=== PATIENT | male | born 1945 | race Caucasian/White ===

== ENCOUNTER 2019-07-20 15:07 | Inpatient (IN) | payer MEDICARE, OTHER ==
[~2019-07-20] VITALS: Ht 162.6 cm; Wt 100.8 kg
[2019-07-20] MEDS ORDERED: normal saline 1000ML IV soln IVB ONE (15:25)
[2019-07-20] MEDS ORDERED: ondansetron/PF 4mg/2ml inj IV ONE (15:25)
[2019-07-20 15:43] LABS: BASOPHILS % (AUTO) 0.4 % (0-1); EOSINOPHILS # (AUTO) 0.3 X10'3 (0-0.9); EOSINOPHILS % (AUTO) 2.7 % (0-6); HEMATOCRIT 36.4 % (42.0-52.0); HEMOGLOBIN 12.3 g/dl (14.0-17.9); LYMPHOCYTES # (AUTO) 1.5 X10'3 (1.1-4.8); LYMPHOCYTES % (AUTO) 15.8 % (21-51); MEAN CORPUSCULAR HEMOGLOBIN 33.2 PG (27.0-31.0); MEAN CORPUSCULAR HGB CONC 33.9 g/dL (33.0-36.5); MEAN CORPUSCULAR VOLUME 97.8 FL (78-98); MEAN PLATELET VOLUME 7.6 FL (7.4-10.4); MONOCYTES # (AUTO) 1.5 X10'3 (0-0.9); MONOCYTES % (AUTO) 16.2 % (2-12); NEUTROPHILS # (AUTO) 6.1 X10'3 (1.8-7.7); NEUTROPHILS % (AUTO) 64.9 % (42-75); PLATELET COUNT 261 X10'3 (140-440); RED BLOOD COUNT 3.72 X10'6 (4.70-6.10); RED CELL DISTRIBUTION WIDTH 14.3 % (11.5-14.5); WHITE BLOOD COUNT 9.5 X10'3 (4.5-11.0)
[2019-07-20 15:53] LABS: ALANINE AMINOTRANSFERASE 33 U/L (12-78); ALBUMIN/GLOBULIN RATIO 0.7 (1.1-1.5); ALKALINE PHOSPHATASE 103 IU/L (46-116); ANION GAP 14 (8-16); ASPARTATE AMINO TRANSFERASE 22 U/L (10-37); BILIRUBIN,TOTAL 0.4 MG/DL (0.1-1.0); BLOOD UREA NITROGEN 83 MG/DL (7-18); BUN/CREATININE RATIO 15.1 (5.4-32.0); CALCIUM 8.2 MG/DL (8.5-10.1); CHLORIDE 108 MMOL/L (99-107); GLUCOSE 185 MG/DL (70-104); POTASSIUM 4.4 MMOL/L (3.5-5.1); SODIUM 139 MMOL/L (135-145); TOTAL CARBON DIOXIDE 17.1 MMOL/L (24-32); TOTAL PROTEIN 7.1 G/DL (6.4-8.2); eGFR 10 ML/MIN
[2019-07-20] MEDS ORDERED: normal saline 1000ML IV soln IV ONE (16:25)
[2019-07-20] MEDS ORDERED: FISH12002 PO (17:40)
[2019-07-20] MEDS ORDERED: LIRA0.6P2 SUBCUT (17:40)
[2019-07-20] MEDS ORDERED: ATOR20TA PO (17:40)
[2019-07-20] MEDS ORDERED: HYDR-4069 PO (17:40)
[2019-07-20] MEDS ORDERED: LISI40TA4 PO (17:40)
[2019-07-20] MEDS ORDERED: HUM7525 SQ (17:40)
[2019-07-20] MEDS ORDERED: AMLO2.5T2 PO (17:40)
[2019-07-20] MEDS ORDERED: glucagon, human recombinant 1mg kit SUBCUT PRN (18:05)
[2019-07-20] MEDS ORDERED: magnesium hydroxide 30ml (MOM) UD suspension PO PRN (18:05)
[2019-07-20] MEDS ORDERED: magnesium Cl slow-release 64mg tablet PO PRN (18:05)
[2019-07-20] MEDS ORDERED: MESSAGE TO PHARMACY PO ONE (18:05)
[2019-07-20] MEDS: K and/or MAG REPLACEMENT MC SCH (18:05)
[2019-07-20] MEDS ORDERED: potassium CL 10mEq/100ml bag 100 ML IV PRN ×2 (18:05)
[2019-07-20] MEDS ORDERED: acetaminophen 325mg tablet PO PRN (18:05)
[2019-07-20] MEDS ORDERED: mag hydrox/Alum hydrox/simeth 30ml oral suspension PO PRN (18:05)
[2019-07-20] MEDS ORDERED: dextrose 50%-water 50ml dispensing syringe IV PRN ×2 (18:05)
[2019-07-20] MEDS ORDERED: magnesium 4gm in 100ml NS 100 ML IV PRN (18:05)
[2019-07-20] MEDS ORDERED: potassium Cl 20 mEq SR tablet PO PRN ×2 (18:05)
[2019-07-20] MEDS ORDERED: dextrose ORAL solution 15 GM/59 ML bottle PO PRN ×2 (18:05)
[2019-07-20] MEDS ORDERED: normal saline 1000ml 1,000 ML IV SCH (18:05)
[2019-07-20] MEDS ORDERED: magnesium 2GM in 50ml NS 50 ML IV PRN (18:05)
[2019-07-20] MEDS ORDERED: ondansetron/PF 4mg/2ml inj IV PRN (18:05)
[2019-07-20] MEDS ORDERED: hydrALAZINE 20mg/ml inj. IV PRN (18:25)
[2019-07-20 19:00] VITALS: BP 107/56
--- NOTE | 2019-07-20 19:17 | NUR ---
SPOKE WITH MD PRADHAN AND MD MUÑOZ CONCERNING PLACING MOREAU CATHETER IN PT WITH PENILE IMPLANT. NO CONCERNS NOTED BUT TO USE SMALLER THAN 16fr CATHETER.
[2019-07-20 19:50] LABS: CLARITY,URINE CLEAR (Clear); COLOR,URINE YELLOW (Yellow); GLUCOSE, URINE NEGATIVE (Neg); KETONES,URINE NEGATIVE (Neg); LEUKOCYTE ESTERASE ,URINE NEGATIVE (Neg); NITRITES, URINE NEGATIVE (Neg); OCCULT BLOOD,URINE NEGATIVE (Neg); PROTEIN,URINE NEGATIVE (Neg); UROBILINOGEN,URINE 0.2 E.U/dL (0.2-1.0)
[2019-07-20 19:51] LABS: UA COLLECTION TYPE FOLEY CATH
--- NOTE | 2019-07-20 20:00 | NUR ---
Received pt report from Sharonda LIRA in ER, had the opportunity to ask questions.
[2019-07-20 20:09] LABS: SODIUM,URINE RANDOM < 15 MEQ/L; TOTAL PROTEIN,URINE RANDOM 32.8 MG/DL
--- NOTE | 2019-07-20 20:15 | NUR ---
pt arrived to unit with all belongings via gurney, transferred to bed by standing and walking, VS stable, tele monitor attached, oriented pt to room, call light in reach, bed low and locked, beck assessed and WDL,
[2019-07-20 20:30] VITALS: BP 107/56
[2019-07-20 20:35] LABS: OSMOLALITY UA 338 MOSM/K (50-1400)
[2019-07-20 20:40] LABS: UA EOSINOPHILS NO EOS /HPF
[2019-07-20] MEDS: heparin, porcine 5000 units/ml vial SQ SCH (20:57)
[2019-07-20] MEDS: sodium bicarbonate (8.4%) inj. 50 MEQ in sodium chloride 0.45% 1,000 ML IV SCH (20:58)
[2019-07-20] MEDS: insulin glargine (Lantus) pen - multi-dose SQ SCH (21:00)
[2019-07-20] MEDS ORDERED: temazepam 15mg capsule PO PRN (21:00)
[2019-07-20 23:00] VITALS: BP 102/55
--- NOTE | 2019-07-21 00:12 | NUR ---
unable to complete med rec at this time. pt does not know what his doses or regular medications are. he states that [facility] have have [facility].
[2019-07-21 03:00] VITALS: BP 120/55
[2019-07-21] MEDS: sodium bicarbonate (8.4%) inj. 50 MEQ in sodium chloride 0.45% 1,000 ML IV SCH ×3 (03:20→20:08)
--- NOTE | 2019-07-21 05:29 | NUR ---
Unable to complete DARTing because pt wanted to sleep and refused to answer many questions at night. pt states "I want to just sleep, I will answer questions in the morning".
[2019-07-21 06:00] VITALS: BP 114/65
[2019-07-21 06:00] LABS: ALANINE AMINOTRANSFERASE 28 U/L (12-78); ALBUMIN 2.6 G/DL (3.4-5.0); ALBUMIN/GLOBULIN RATIO 0.8 (1.1-1.5); ALKALINE PHOSPHATASE 78 IU/L (46-116); ANION GAP 13 (8-16); ASPARTATE AMINO TRANSFERASE 13 U/L (10-37); BILIRUBIN,TOTAL 0.2 MG/DL (0.1-1.0); BLOOD UREA NITROGEN 84 MG/DL (7-18); BUN/CREATININE RATIO 16.6 (5.4-32.0); CALCIUM 7.2 MG/DL (8.5-10.1); CHLORIDE 111 MMOL/L (99-107); CREATININE 5.07 MG/DL (0.60-1.10); GLUCOSE 145 MG/DL (70-104); MAGNESIUM 1.7 MG/DL (1.5-2.4); PHOSPHORUS 5.1 MG/DL (2.3-4.5); SODIUM 141 MMOL/L (135-145); TOTAL CARBON DIOXIDE 17.4 MMOL/L (24-32); eGFR 11 ML/MIN
[2019-07-21 06:02] LABS: BASOPHILS % (AUTO) 0.1 % (0-1); EOSINOPHILS # (AUTO) 0.3 X10'3 (0-0.9); EOSINOPHILS % (AUTO) 3.7 % (0-6); HEMATOCRIT 31.9 % (42.0-52.0); LYMPHOCYTES # (AUTO) 1.5 X10'3 (1.1-4.8); LYMPHOCYTES % (AUTO) 20.1 % (21-51); MEAN CORPUSCULAR HEMOGLOBIN 33.8 PG (27.0-31.0); MEAN CORPUSCULAR HGB CONC 34.4 g/dL (33.0-36.5); MEAN CORPUSCULAR VOLUME 98.3 FL (78-98); MEAN PLATELET VOLUME 7.6 FL (7.4-10.4); MONOCYTES # (AUTO) 1.4 X10'3 (0-0.9); MONOCYTES % (AUTO) 18.1 % (2-12); NEUTROPHILS # (AUTO) 4.4 X10'3 (1.8-7.7); PLATELET COUNT 206 X10'3 (140-440); RED BLOOD COUNT 3.24 X10'6 (4.70-6.10); RED CELL DISTRIBUTION WIDTH 14.2 % (11.5-14.5); WHITE BLOOD COUNT 7.6 X10'3 (4.5-11.0)
--- NOTE | 2019-07-21 06:43 | NUR ---
Problems reprioritized. Patient report given, questions answered & plan of care reviewed with Kathy Miguel RN.
--- NOTE | 2019-07-21 06:46 | NUR ---
Patient in room PCU 3009. I have received report from PANKAJ Kamara and had the opportunity to ask questions and assume patient care. Pt awake and alert. Will continue to monitor.
[2019-07-21] MEDS: heparin, porcine 5000 units/ml vial SQ SCH ×2 (07:56→21:29)
[2019-07-21] MEDS: K and/or MAG REPLACEMENT MC SCH (08:00)
[2019-07-21 11:00] VITALS: BP 133/65
--- NOTE | 2019-07-21 11:47 | NUR ---
Ok to leave IV in Right AC per Dr Crabtree.
--- NOTE | 2019-07-21 13:09 | NUR ---
DM Consult: A1C 7.7. Pt admit w/ diarrhea over one week following meal. On c. diff isolation at this time w/ liquid stools. DX acute renal failure, dehydration, and diarrhea. Hx CKD III, 8in colon resection for "ulcers" per MD note. CT shows diverticulosis without diverticulitis per MD note. Pt will need DM ed once stable prior to d/c. Will continue to monitor. Addendum: 07/21/19 at [address] Amended: Links added.
[2019-07-21 15:00] VITALS: BP 117/53
--- NOTE | 2019-07-21 16:30 | NUR ---
Patient report given, questions answered & plan of care reviewed with PANKAJ Chavez. Addendum: 07/22/19 at 0025 by Ann RECINOS REPORT RECEIVED FROM PANKAJ CHAVEZ. PLAN OF CARE REVIEWED.
[2019-07-21 18:00] VITALS: BP 151/78
--- NOTE | 2019-07-21 18:30 | NUR ---
Patient in room PCU 3009. I have received report from [employer] and had the opportunity to ask questions and assume patient care. ASSUMED CARE OF RN STUDENT ABHISHEK Antonio
--- NOTE | 2019-07-21 18:47 | NUR ---
Problems reprioritized. Patient report given, questions answered & plan of care reviewed with PANKAJ Colon.
[2019-07-21] MEDS: insulin Lispro (HumaLOG) vial - multi-dose SQ SCH (19:40)
[2019-07-21] MEDS: insulin glargine (Lantus) pen - multi-dose SQ SCH (21:27)
[2019-07-21 22:00] VITALS: BP 144/73
[2019-07-21] MEDS: acetaminophen 325mg tablet PO PRN (22:39)
[2019-07-22] VITALS (7 sets, daily range): BP systolic 103–147; BP diastolic 43–76
--- NOTE | 2019-07-22 01:32 | NUR ---
Student documentation: I have reviewed and agree with all interventions, assessments performed and documented by ABHISHEK Norris Medication Administration: For this medication-pass time frame, all medication were reviewed, dispensed, administered and documented per hospital policy by ABHISHEK Antonio
[2019-07-22] MEDS: sodium bicarbonate (8.4%) inj. 50 MEQ in sodium chloride 0.45% 1,000 ML IV SCH ×3 (01:34→19:45)
[2019-07-22] MEDS: acetaminophen 325mg tablet PO PRN (06:01)
[2019-07-22 06:22] LABS: BASOPHILS % (AUTO) 0.1 % (0-1); EOSINOPHILS # (AUTO) 0.1 X10'3 (0-0.9); EOSINOPHILS % (AUTO) 0.5 % (0-6); HEMATOCRIT 36.2 % (42.0-52.0); HEMOGLOBIN 12.4 g/dl (14.0-17.9); LYMPHOCYTES # (AUTO) 1.4 X10'3 (1.1-4.8); LYMPHOCYTES % (AUTO) 9.4 % (21-51); MEAN CORPUSCULAR HEMOGLOBIN 33.4 PG (27.0-31.0); MEAN CORPUSCULAR HGB CONC 34.3 g/dL (33.0-36.5); MEAN CORPUSCULAR VOLUME 97.4 FL (78-98); MEAN PLATELET VOLUME 7.3 FL (7.4-10.4); MONOCYTES # (AUTO) 2.4 X10'3 (0-0.9); NEUTROPHILS # (AUTO) 11.1 X10'3 (1.8-7.7); PLATELET COUNT 214 X10'3 (140-440); RED BLOOD COUNT 3.72 X10'6 (4.70-6.10); RED CELL DISTRIBUTION WIDTH 14.3 % (11.5-14.5)
--- NOTE | 2019-07-22 06:26 | NUR ---
Problems reprioritized. Patient report given, questions answered & plan of care reviewed with DRE.
[2019-07-22 06:41] LABS: ALANINE AMINOTRANSFERASE 24 U/L (12-78); ALBUMIN 2.5 G/DL (3.4-5.0); ALBUMIN/GLOBULIN RATIO 0.6 (1.1-1.5); ALKALINE PHOSPHATASE 65 IU/L (46-116); ANION GAP 15 (8-16); ASPARTATE AMINO TRANSFERASE 16 U/L (10-37); BILIRUBIN,TOTAL 0.4 MG/DL (0.1-1.0); BLOOD UREA NITROGEN 70 MG/DL (7-18); BUN/CREATININE RATIO 16.8 (5.4-32.0); CALCIUM 7.9 MG/DL (8.5-10.1); CHLORIDE 111 MMOL/L (99-107); CREATININE 4.17 MG/DL (0.60-1.10); GLUCOSE 124 MG/DL (70-104); MAGNESIUM 1.6 MG/DL (1.5-2.4); PHOSPHORUS 3.9 MG/DL (2.3-4.5); POTASSIUM 3.7 MMOL/L (3.5-5.1); SODIUM 142 MMOL/L (135-145); TOTAL CARBON DIOXIDE 15.8 MMOL/L (24-32); TOTAL PROTEIN 6.8 G/DL (6.4-8.2); eGFR 14 ML/MIN
[2019-07-22 07:38] LABS: LARGE PLATELETS FEW; PLATELET ESTIMATE NORMAL; TOTAL CELLS COUNTED 100
[2019-07-22] MEDS: K and/or MAG REPLACEMENT MC SCH (08:00)
[2019-07-22] MEDS: heparin, porcine 5000 units/ml vial SQ SCH ×2 (08:50→19:45)
[2019-07-22] MEDS: insulin Lispro (HumaLOG) vial - multi-dose SQ SCH ×2 (09:27→19:44)
[2019-07-22 14:04] LABS: C DIFF ANTIGEN NEGATIVE (NEGATIVE); C DIFF SPECIMEN=DIARRHEA? ACCEPTABLE; C DIFFICILE TOXINS A&B NEGATIVE (Neg)
--- NOTE | 2019-07-22 15:17 | NUR ---
Initial: Pt seen by RD for written/verbal DM ed w/ RD contact information provided. Pt declined verbal review. DX c.diff s/p bad fish meal per pt report. Pt PO 0-25% first day w/ 100% carbs so far today documented. No nutrition concerns at this time. Will continue to monitor. Rec: 1. continue carb controlled diet 2. wt per rx Addendum: 07/22/19 at [address] Amended: Links added.
--- NOTE | 2019-07-22 18:31 | NUR ---
Problems reprioritized. Patient report given, questions answered & plan of care reviewed with PANKAJ Aguilar.
--- NOTE | 2019-07-22 18:36 | NUR ---
Problems reprioritized. Patient report given, questions answered & plan of care reviewed with PANKAJ Chavez. Patient awake for bedside report and stable at this time. Will continue to monitor closely.
[2019-07-22] MEDS: insulin glargine (Lantus) pen - multi-dose SQ SCH (21:49)
[2019-07-23] VITALS (7 sets, daily range): BP systolic 114–147; BP diastolic 57–86
[2019-07-23] MEDS: sodium bicarbonate (8.4%) inj. 50 MEQ in sodium chloride 0.45% 1,000 ML IV SCH ×3 (04:55→21:17)
--- NOTE | 2019-07-23 06:16 | NUR ---
Problems reprioritized. Patient report given, questions answered & plan of care reviewed with PANKAJ Chavez.
[2019-07-23 06:30] LABS: BASOPHILS % (AUTO) 0.2 % (0-1); EOSINOPHILS # (AUTO) 0.1 X10'3 (0-0.9); EOSINOPHILS % (AUTO) 0.8 % (0-6); HEMOGLOBIN 12.6 g/dl (14.0-17.9); LYMPHOCYTES # (AUTO) 1.6 X10'3 (1.1-4.8); MEAN CORPUSCULAR HEMOGLOBIN 33.2 PG (27.0-31.0); MEAN CORPUSCULAR VOLUME 97.6 FL (78-98); MEAN PLATELET VOLUME 7.6 FL (7.4-10.4); MONOCYTES # (AUTO) 2.2 X10'3 (0-0.9); MONOCYTES % (AUTO) 16.4 % (2-12); NEUTROPHILS # (AUTO) 9.6 X10'3 (1.8-7.7); NEUTROPHILS % (AUTO) 70.6 % (42-75); PLATELET COUNT 239 X10'3 (140-440); RED BLOOD COUNT 3.79 X10'6 (4.70-6.10); RED CELL DISTRIBUTION WIDTH 14.5 % (11.5-14.5); WHITE BLOOD COUNT 13.6 X10'3 (4.5-11.0)
--- NOTE | 2019-07-23 06:34 | NUR ---
Patient in room PCU 3009. I have received report from PANKAJ Aguilar and had the opportunity to ask questions and assume patient care. Pt sleeping. Will continue to monitor.
[2019-07-23 06:59] LABS: ALANINE AMINOTRANSFERASE 30 U/L (12-78); ALBUMIN 2.4 G/DL (3.4-5.0); ALBUMIN/GLOBULIN RATIO 0.5 (1.1-1.5); ALKALINE PHOSPHATASE 69 IU/L (46-116); ANION GAP 14 (8-16); ASPARTATE AMINO TRANSFERASE 20 U/L (10-37); BILIRUBIN,TOTAL 0.5 MG/DL (0.1-1.0); BLOOD UREA NITROGEN 55 MG/DL (7-18); CALCIUM 8.3 MG/DL (8.5-10.1); CHLORIDE 107 MMOL/L (99-107); CREATININE 3.43 MG/DL (0.60-1.10); GLUCOSE 149 MG/DL (70-104); MAGNESIUM 1.5 MG/DL (1.5-2.4); PHOSPHORUS 3.1 MG/DL (2.3-4.5); POTASSIUM 3.5 MMOL/L (3.5-5.1); SODIUM 140 MMOL/L (135-145); TOTAL CARBON DIOXIDE 19.4 MMOL/L (24-32); eGFR 18 ML/MIN
[2019-07-23] MEDS: heparin, porcine 5000 units/ml vial SQ SCH (07:26)
[2019-07-23] MEDS: K and/or MAG REPLACEMENT MC SCH (07:33)
--- NOTE | 2019-07-23 08:06 | NUR ---
Sent to Dr Slaughter PAGER ID: [phone] MESSAGE: RE: Kamron Andres [phone]. Pt c/o left sided CP. STAT EKG ordered per protocol. Would you like to come to the floor to read it or have me take it to ED to be read by MD? -Kathy [phone]
[2019-07-23] MEDS ORDERED: nitroGLYCERIN 0.4mg SUBLingual tab SL PRN (08:15)
[2019-07-23] MEDS ORDERED: nitroGLYCERIN 0.4mg/hour patch TD ONE (08:15)
[2019-07-23] MEDS ORDERED: heparin 10,000 units/1 ML INJ IV ONE (08:20)
[2019-07-23] MEDS ORDERED: heparin 10,000 units/1 ML INJ IV PRN (08:20)
[2019-07-23] MEDS: insulin Lispro (HumaLOG) vial - multi-dose SQ SCH ×3 (08:27→19:30)
[2019-07-23] MEDS ORDERED: aspirin 81mg tab.chew PO ONE (08:35)
[2019-07-23] MEDS: heparin 25,000 UNIT/250ml bag 250 ML IV SCH (08:53)
[2019-07-23 09:19] LABS: PARTIAL THROMBOPLASTIN TIME 38 SECONDS (22-32)
--- NOTE | 2019-07-23 18:26 | NUR ---
Patient in room PCU 3009. I have received report from PANKAJ Chavez and had the opportunity to ask questions and assume patient care. Patient awake for bedside report. Patient on room air and stable at this time consuming evening meal. Heparin gtt infusing at 1000 units/hr per provider order. Will continue to monitor closely.
--- NOTE | 2019-07-23 18:39 | NUR ---
Problems reprioritized. Patient report given, questions answered & plan of care reviewed with PANKAJ Aguilar.
[2019-07-23] MEDS: tamsulosin 0.4mg capsule PO SCH (21:15)
[2019-07-23] MEDS: insulin glargine (Lantus) pen - multi-dose SQ SCH (22:01)
--- NOTE | 2019-07-23 23:05 | NUR ---
Patient 12 hr troponin elevated at 0.10. Dr. Hickey notified and no new orders at this time. 12 hr EKG reviewed and in sinus rhythm. Patient stable and no complaints of chest pain at this time. Will continue to monitor closely.
[2019-07-24 03:00] VITALS: BP 142/75
[2019-07-24 03:07] LABS: ALANINE AMINOTRANSFERASE 46 U/L (12-78); ALBUMIN 2.3 G/DL (3.4-5.0); ALBUMIN/GLOBULIN RATIO 0.5 (1.1-1.5); ALKALINE PHOSPHATASE 73 IU/L (46-116); ANION GAP 12 (8-16); ASPARTATE AMINO TRANSFERASE 33 U/L (10-37); BILIRUBIN,TOTAL 0.4 MG/DL (0.1-1.0); BLOOD UREA NITROGEN 48 MG/DL (7-18); BUN/CREATININE RATIO 15.6 (5.4-32.0); CALCIUM 7.6 MG/DL (8.5-10.1); CHLORIDE 107 MMOL/L (99-107); CREATININE 3.08 MG/DL (0.60-1.10); GLUCOSE 175 MG/DL (70-104); MAGNESIUM 1.3 MG/DL (1.5-2.4); PHOSPHORUS 2.5 MG/DL (2.3-4.5); POTASSIUM 3.5 MMOL/L (3.5-5.1); SODIUM 141 MMOL/L (135-145); TOTAL CARBON DIOXIDE 22.4 MMOL/L (24-32); TOTAL PROTEIN 6.6 G/DL (6.4-8.2); eGFR 20 ML/MIN
--- NOTE | 2019-07-24 03:30 | NUR ---
Patient Cardiac PTT resulted at 32. 4,000 unit bolus administered and set increase to 1200 units/hr from 1,000 units/hr per protocol. Next PTT at 0930. Will continue to monitor closely.
[2019-07-24 06:00] VITALS: BP_SYST 127; BP_SYST 144; BP_DIAS 64; BP_DIAS 68
--- NOTE | 2019-07-24 06:24 | NUR ---
Problems reprioritized. Patient report given, questions answered & plan of care reviewed with PANKAJ Robison and PANKAJ Quezada.
--- NOTE | 2019-07-24 06:30 | NUR ---
received report on this patient
[2019-07-24] MEDS: finasteride 5mg tablet PO SCH (07:20)
[2019-07-24] MEDS: K and/or MAG REPLACEMENT MC SCH (07:22)
[2019-07-24] MEDS: heparin 25,000 UNIT/250ml bag 250 ML IV SCH (07:25)
[2019-07-24] MEDS: sodium bicarbonate (8.4%) inj. 50 MEQ in sodium chloride 0.45% 1,000 ML IV SCH ×3 (07:27→20:56)
--- NOTE | 2019-07-24 09:00 | NUR ---
stopped heparin drip per order
[2019-07-24 10:03] LABS: BASOPHILS % (AUTO) 0.2 % (0-1); EOSINOPHILS # (AUTO) 0.2 X10'3 (0-0.9); EOSINOPHILS % (AUTO) 1.6 % (0-6); HEMATOCRIT 31.1 % (42.0-52.0); HEMOGLOBIN 10.9 g/dl (14.0-17.9); LYMPHOCYTES # (AUTO) 1.3 X10'3 (1.1-4.8); LYMPHOCYTES % (AUTO) 12.7 % (21-51); MEAN CORPUSCULAR HEMOGLOBIN 34.1 PG (27.0-31.0); MEAN CORPUSCULAR HGB CONC 35.1 g/dL (33.0-36.5); MEAN PLATELET VOLUME 7.3 FL (7.4-10.4); MONOCYTES # (AUTO) 1.4 X10'3 (0-0.9); MONOCYTES % (AUTO) 14.5 % (2-12); PLATELET COUNT 213 X10'3 (140-440); RED BLOOD COUNT 3.21 X10'6 (4.70-6.10); RED CELL DISTRIBUTION WIDTH 14.3 % (11.5-14.5); WHITE BLOOD COUNT 9.9 X10'3 (4.5-11.0)
[2019-07-24 11:00] VITALS: BP 141/72
[2019-07-24] MEDS: acetaminophen 325mg tablet PO PRN ×2 (14:50→21:24)
[2019-07-24] MEDS: insulin Lispro (HumaLOG) vial - multi-dose SQ SCH ×3 (14:54→21:59)
[2019-07-24 15:00] VITALS: BP 140/83
[2019-07-24] MEDS: ipratropium/albuterol 3ml nebule NEB SCH ×3 (16:09→23:21)
[2019-07-24 18:00] VITALS: BP 140/72
--- NOTE | 2019-07-24 19:04 | NUR ---
Patient in room PCU 3009. I have received report from Michael LIRA and had the opportunity to ask questions and assume patient care.
[2019-07-24] MEDS: tamsulosin 0.4mg capsule PO SCH (20:55)
[2019-07-24] MEDS: insulin glargine (Lantus) pen - multi-dose SQ SCH (21:58)
[2019-07-24 23:00] VITALS: BP 132/55
[2019-07-25] VITALS (7 sets, daily range): BP systolic 128–150; BP diastolic 54–83
[2019-07-25] MEDS: ipratropium/albuterol 3ml nebule NEB SCH ×6 (03:16→23:33)
[2019-07-25] MEDS: sodium bicarbonate (8.4%) inj. 50 MEQ in sodium chloride 0.45% 1,000 ML IV SCH (05:42)
[2019-07-25] MEDS: acetaminophen 325mg tablet PO PRN (06:02)
--- NOTE | 2019-07-25 06:14 | NUR ---
Problems reprioritized. Patient report given, questions answered & plan of care reviewed with kamaljit LIRA.
--- NOTE | 2019-07-25 06:15 | NUR ---
Patient in room PCU 3009. I have received report from PANKAJ Sarmiento and had the opportunity to ask questions and assume patient care.
[2019-07-25 06:29] LABS: BASOPHILS % (AUTO) 0.2 % (0-1); EOSINOPHILS # (AUTO) 0.3 X10'3 (0-0.9); EOSINOPHILS % (AUTO) 3.5 % (0-6); HEMATOCRIT 29.3 % (42.0-52.0); HEMOGLOBIN 10.3 g/dl (14.0-17.9); LYMPHOCYTES # (AUTO) 1.2 X10'3 (1.1-4.8); MEAN CORPUSCULAR HEMOGLOBIN 34.3 PG (27.0-31.0); MEAN CORPUSCULAR HGB CONC 35.1 g/dL (33.0-36.5); MEAN CORPUSCULAR VOLUME 97.6 FL (78-98); MEAN PLATELET VOLUME 7.5 FL (7.4-10.4); MONOCYTES # (AUTO) 1.1 X10'3 (0-0.9); MONOCYTES % (AUTO) 13.6 % (2-12); NEUTROPHILS # (AUTO) 5.4 X10'3 (1.8-7.7); NEUTROPHILS % (AUTO) 67.7 % (42-75); PLATELET COUNT 196 X10'3 (140-440); RED CELL DISTRIBUTION WIDTH 14.3 % (11.5-14.5)
[2019-07-25 06:56] LABS: ALANINE AMINOTRANSFERASE 59 U/L (12-78); ALBUMIN/GLOBULIN RATIO 0.5 (1.1-1.5); ALKALINE PHOSPHATASE 62 IU/L (46-116); ANION GAP 12 (8-16); ASPARTATE AMINO TRANSFERASE 34 U/L (10-37); BILIRUBIN,TOTAL 0.3 MG/DL (0.1-1.0); BLOOD UREA NITROGEN 40 MG/DL (7-18); BUN/CREATININE RATIO 14.8 (5.4-32.0); CALCIUM 8.2 MG/DL (8.5-10.1); CHLORIDE 109 MMOL/L (99-107); GLUCOSE 187 MG/DL (70-104); MAGNESIUM 1.4 MG/DL (1.5-2.4); PHOSPHORUS 3.5 MG/DL (2.3-4.5); POTASSIUM 3.5 MMOL/L (3.5-5.1); SODIUM 144 MMOL/L (135-145); TOTAL CARBON DIOXIDE 23.2 MMOL/L (24-32); TOTAL PROTEIN 6.3 G/DL (6.4-8.2); eGFR 23 ML/MIN
[2019-07-25] MEDS: K and/or MAG REPLACEMENT MC SCH (07:01)
[2019-07-25] MEDS: finasteride 5mg tablet PO SCH (08:21)
[2019-07-25] MEDS: insulin Lispro (HumaLOG) vial - multi-dose SQ SCH ×3 (08:52→20:04)
--- NOTE | 2019-07-25 09:26 | NUR ---
O2 Sat at rest on room air:_90__% If below 89%: Recovery O2 Sat at rest on ___LPM:___%:___% via (mask/nasal cannula, etc..) No further documentation is necessary. If O2 Sat did not drop below 89% on room air,ambulate patient on room air. O2 Sat while ambulating on room air:_87__% Recovery O2 Sat while ambulating on __2_LPM:_90__% No further documentation is necessary. If patient does not drop below 89% while ambulating, he/she does not qualify for home O2.
[2019-07-25] MEDS ORDERED: furosemide 40mg/4ml inj IV ONE (11:35)
[2019-07-25] MEDS ORDERED: tamsulosin capsule PO (11:40)
[2019-07-25] MEDS ORDERED: FINA5TAB11 PO (11:40)
--- NOTE | 2019-07-25 14:18 | NUR ---
PAGER ID: [phone] MESSAGE: [phone] Kamron Andres did you want him over for one more night of observation as per your note? PANKAJ Cruz Ext [phone]
--- NOTE | 2019-07-25 18:12 | NUR ---
Problems reprioritized. Patient report given, questions answered & plan of care reviewed with PANKAJ Spear.
--- NOTE | 2019-07-25 18:20 | NUR ---
Patient in room PCU 3009. I have received report from Anthony LIRA and had the opportunity to ask questions and assume patient care. Patient is up having dinner, will continue to monitor.
[2019-07-25] MEDS: tamsulosin 0.4mg capsule PO SCH (20:04)
[2019-07-25] MEDS: insulin glargine (Lantus) pen - multi-dose SQ SCH (22:12)
[2019-07-26] MEDS: acetaminophen 325mg tablet PO PRN (02:05)
[2019-07-26 03:00] VITALS: BP 132/56
[2019-07-26] MEDS: ipratropium/albuterol 3ml nebule NEB SCH ×2 (03:35→07:34)
[2019-07-26 05:51] LABS: MAGNESIUM 1.3 MG/DL (1.5-2.4)
[2019-07-26 06:00] VITALS: BP 143/65
--- NOTE | 2019-07-26 06:26 | NUR ---
Problems reprioritized. Patient report given, questions answered & plan of care reviewed with Anthony LIRA.
[2019-07-26] MEDS: K and/or MAG REPLACEMENT MC SCH (07:02)
[2019-07-26] MEDS: finasteride 5mg tablet PO SCH (07:48)
[2019-07-26] MEDS: insulin Lispro (HumaLOG) vial - multi-dose SQ SCH (09:00)
[2019-07-26 10:12] LABS: BASOPHILS % (AUTO) 0.4 % (0-1); EOSINOPHILS # (AUTO) 0.4 X10'3 (0-0.9); HEMATOCRIT 30.2 % (42.0-52.0); HEMOGLOBIN 10.6 g/dl (14.0-17.9); LYMPHOCYTES # (AUTO) 1.3 X10'3 (1.1-4.8); LYMPHOCYTES % (AUTO) 15.4 % (21-51); MEAN CORPUSCULAR HEMOGLOBIN 34.1 PG (27.0-31.0); MEAN CORPUSCULAR HGB CONC 34.9 g/dL (33.0-36.5); MEAN CORPUSCULAR VOLUME 97.6 FL (78-98); MEAN PLATELET VOLUME 7.6 FL (7.4-10.4); MONOCYTES % (AUTO) 11.6 % (2-12); NEUTROPHILS # (AUTO) 5.7 X10'3 (1.8-7.7); NEUTROPHILS % (AUTO) 67.6 % (42-75); PLATELET COUNT 219 X10'3 (140-440); RED CELL DISTRIBUTION WIDTH 14.3 % (11.5-14.5); WHITE BLOOD COUNT 8.5 X10'3 (4.5-11.0)
[2019-07-26 10:18] LABS: ALANINE AMINOTRANSFERASE 73 U/L (12-78); ALBUMIN 2.2 G/DL (3.4-5.0); ALBUMIN/GLOBULIN RATIO 0.5 (1.1-1.5); ALKALINE PHOSPHATASE 64 IU/L (46-116); ANION GAP 11 (8-16); ASPARTATE AMINO TRANSFERASE 38 U/L (10-37); BILIRUBIN,TOTAL 0.3 MG/DL (0.1-1.0); BLOOD UREA NITROGEN 39 MG/DL (7-18); BUN/CREATININE RATIO 14.1 (5.4-32.0); CALCIUM 7.6 MG/DL (8.5-10.1); CHLORIDE 108 MMOL/L (99-107); CREATININE 2.77 MG/DL (0.60-1.10); GLUCOSE 164 MG/DL (70-104); POTASSIUM 3.4 MMOL/L (3.5-5.1); SODIUM 145 MMOL/L (135-145); TOTAL CARBON DIOXIDE 25.8 MMOL/L (24-32); TOTAL PROTEIN 6.4 G/DL (6.4-8.2); eGFR 22 ML/MIN
--- NOTE | 2019-07-26 15:29 | NUR ---
Diischarge IV off. Educated on DM on dehydration. Given home oxygen. Educated on follow-up. Thompson left in per MD to see urologist.
[2019-07-30 12:03] LABS: OCCULT BLOOD STOOL NEGATIVE (Neg)
== END 2019-07-26 12:05 | disposition home health service (06) | DRG 391 ==
LOC: ER 15:09 → ED HOLD 18:14 → PCU 3S 19:52 → CMPBEDREQ 07-22 18:05
PROVIDERS: ADMIT Family Medicine; ATTEND Family Medicine
PROC: 5A09357 Assistance with Respiratory Ventilation, Less than 24 Consecutive Hours, Continuous Positive Airway Pressure (ICD-10-PCS; principal; 2019-07-20)
PROC: 5A09357 Assistance with Respiratory Ventilation, Less than 24 Consecutive Hours, Continuous Positive Airway Pressure (ICD-10-PCS; 2019-07-22)
PROC: 5A09357 Assistance with Respiratory Ventilation, Less than 24 Consecutive Hours, Continuous Positive Airway Pressure (ICD-10-PCS; 2019-07-23)
PROC: 5A09357 Assistance with Respiratory Ventilation, Less than 24 Consecutive Hours, Continuous Positive Airway Pressure (ICD-10-PCS; 2019-07-24)
PROC: 5A09357 Assistance with Respiratory Ventilation, Less than 24 Consecutive Hours, Continuous Positive Airway Pressure (ICD-10-PCS; 2019-07-25)
PROC: 5A09357 Assistance with Respiratory Ventilation, Less than 24 Consecutive Hours, Continuous Positive Airway Pressure (ICD-10-PCS; 2019-07-26)
DX: K52.9 Noninfective gastroenteritis and colitis, unspecified (principal); N17.0 Acute kidney failure with tubular necrosis; E87.2 Acidosis; E11.22 Type 2 diabetes mellitus with diabetic chronic kidney disease; E78.1 Pure hyperglyceridemia; E78.5 Hyperlipidemia, unspecified; N13.9 Obstructive and reflux uropathy, unspecified; N18.3 Chronic kidney disease, stage 3 (moderate); E86.0 Dehydration; M51.36 Other intervertebral disc degeneration, lumbar region; G47.33 Obstructive sleep apnea (adult) (pediatric); I12.9 Hypertensive chronic kidney disease with stage 1 through stage 4 chronic kidney disease, or unspecified chronic kidney disease; I25.10 Atherosclerotic heart disease of native coronary artery without angina pectoris; I48.91 Unspecified atrial fibrillation; J45.909 Unspecified asthma, uncomplicated; K21.9 Gastro-esophageal reflux disease without esophagitis; N40.0 Benign prostatic hyperplasia without lower urinary tract symptoms; Z86.73 Personal history of transient ischemic attack (TIA), and cerebral infarction without residual deficits; Z95.1 Presence of aortocoronary bypass graft; Z90.49 Acquired absence of other specified parts of digestive tract; Z79.899 Other long term (current) drug therapy; Z79.4 Long term (current) use of insulin
CPT/HCPCS: 36415; 71045; 74176; 76775; 80053; 81003; 82272; 82570; 82948; 83036; 83605; 83735; 83935; 84100; 84133; 84145; 84153; 84156; 84300; 84443; 84484; 85025; 85610; 85730; 87040; 87045; 87046; 87081; 87207; 87324; 87449; 93005; 94640; 94660; 94760; 96361; 96374; 97116; 97161; 97530; 99285; G0378; J1644; J1815; J1940; J2405